=== PATIENT | female | born 1950 | race African-American/Black ===

== ENCOUNTER 2019-01-15 08:21 | Outpatient (CLI) | payer OTHER ==
[~2019-01-15 08:21] MED LIST: CAPOTEN100 MG; DIGOX125 MCG; VERAPAMIL ER240 MG
== END 2019-01-15 14:54 | disposition home or self-care (01) ==
LOC: LAB 08:21
DX: E11.69 Type 2 diabetes mellitus with other specified complication (principal); N19 Unspecified kidney failure; E78.2 Mixed hyperlipidemia; E05.90 Thyrotoxicosis, unspecified without thyrotoxic crisis or storm; E55.9 Vitamin D deficiency, unspecified